=== PATIENT | female | born 1960 | race African-American/Black ===

== ENCOUNTER 2017-03-06 17:50 | Emergency (ER) | payer OTHER ==
[2017-03-06 18:05] VITALS: BP 156/91
--- NOTE | 2017-03-06 19:10 | RAD ---
Indication: Left elbow injury. 4 views of left elbow demonstrates no fracture. No joint effusion is noted. IMPRESSION: No fracture of the elbow is noted.
--- NOTE | 2017-03-17 07:24 | UC ---
Padmini Sheth Alok, scribed for Dayron Iqbal MD on 03/06/17 at 1815 . Upper Extremity HPI - HPI Summary HPI Summary: 56F presents to [facility] with left elbow swelling and pain. Pt states that this morning she banged her left elbow on a car door with immediate onset of pain. Throughout the day the pain has been returning a few times when bending/ straitening elbow. Pt states her pain is worse on the inside of her left arm and radiates throughout the entire arm. PMHx includes Asthma for which she takes Spiriva and Flovent as well as Depression for which she takes anti- depressants. Pt denies HTN. PSHx includes a caesarean section 16 years ago. Pt drinks ETOH occasionally. - History of Current Complaint Chief Complaint: UCUpperExtremity Stated Complaint: ELBOW INJURY Time Seen by Provider: 03/06/17 18:06 Hx Obtained From: Patient Onset/Duration: Lasting Hours, Still Present Severity Initially: Moderate Severity Currently: Moderate Pain Intensity: 10 Pain Scale Used: 0-10 Numeric Location Of Pain: Is Discrete @ - left elbow, Radiates To - left arm Character: Sharp Aggravating Factor(s): Flexion Associated Signs And Symptoms: Positive: Swelling - Allergies/Home Medications Allergies/Adverse Reactions: Allergies Allergy/AdvReac Type Severity Reaction Status Date / Time bee stings Allergy Severe Swelling Uncoded 05/19/13 12:23 Home Medications: Home Medications Fluticasone HFA 44 mcg(NF) [Flovent Hfa 44 mcg(NF)] 1 puff INH BID 03/06/17 [ History Confirmed 03/06/17] PMH/Surg Hx/FS Hx/Imm Hx Respiratory History Of: Reports: Asthma Psychological History Of: Reports: Depression Cancer History Of: Denies: Breast Cancer - Surgical History Surgical History: Yes Surgery Procedure, Year, and Place: c section 16 yrs ago - Family History Known Family History: Positive: Other - Yes- [place] - Social History Occupation: Employed Full-time Alcohol Use: Weekly Substance Use Type: None Smoking Status (MU): Never Smoked Tobacco Review of Systems Cardiovascular: Negative Musculoskeletal: Edema - left elbow, Other: - left elbow pain All Other Systems Reviewed And Are Negative: Yes Physical Exam Triage Information Reviewed: Yes Appearance: Well-Appearing, No Pain Distress Vital Signs: Initial Vital Signs Temp 97.5 F 03/06/17 18:01 Pulse 72 03/06/17 18:01 Resp 18 03/06/17 18:01 BP 156/91 03/06/17 18:01 Pulse Ox 95 03/06/17 18:01 Vital Signs Reviewed: Yes Eyes: Positive: Conjunctiva Clear ENT: Positive: Normal ENT inspection Neck: Positive: Supple Respiratory: Positive: Chest non-tender, Lungs clear Cardiovascular: Positive: RRR, No Murmur, Pulses Normal Abdomen Description: Negative: Distended Musculoskeletal: Positive: Strength Intact, ROM Intact, No Edema, Other: - minor tenderness over the left elbow olecrenon, no STS, no obvious bruise. Neurological: Positive: Alert, Muscle Tone Normal Psychological: Positive: Normal Response To Family Skin Exam: Normal Diagnostics - Radiology Elbow XRAY Xray Interpretation: Positive (See Comments) - IMPRESSION: No fracture of the elbow is noted. Radiology Interpretation Completed By: Radiologist Upper Extremity Course/Dx - Course Course Of Treatment: 56 yr old with left elbow pain after hitting elbow. She has intact neurovasular exam left hand. She has no symptoms presently. But her symptoms of pain that radiate into the medial right hand from the elbow are likely due to contusion of the ulnar nerve. Will refer to ortho for follow up. - Differential Dx/Diagnosis Provider Diagnoses: contusion elbow Discharge - Discharge Plan Condition: Good Disposition: HOME Patient Education Materials: Contusion in Adults (ED) Referrals: Yolanda Mclain MD [Primary Care Provider] - Gwendolyn Galvez MD [Medical Doctor] - The documentation as recorded by the Padmini butler Alok accurately reflects the service I personally performed and the decisions made by , Dayron Iqbal MD.
== END 2017-03-06 19:40 | disposition home or self-care (01) ==
LOC: UCEAST 17:50
DX: S50.02XA Contusion of left elbow, initial encounter (principal); W22.8XXA Striking against or struck by other objects, initial encounter; Y93.9 Activity, unspecified; Y92.9 Unspecified place or not applicable; J45.909 Unspecified asthma, uncomplicated; F32.9 Major depressive disorder, single episode, unspecified; Z91.030 Bee allergy status
CPT/HCPCS: 99211; G0463

== ENCOUNTER 2017-04-13 06:36 | Day surgery (SDC) | payer OTHER ==
[~2017-04-13 06:36] MED LIST: Buffered Lidocaine 0.9% SYRIN* 5 ML/SYR SYRINGE INTRADERM ONE; Buffered Lidocaine 0.9% SYRIN* 5 ML/SYR SYRINGE ONE; Ibuprofen TAB* 400 MG ONE; Ibuprofen TAB* 400 MG PO ONE; Sodium Citrate/Citric Acid* 15 ML UDC ONE; Sodium Citrate/Citric Acid* 15 ML UDC PO ONE
[2017-04-13] MEDS ORDERED: ceFAZolin 2 GM PREMIX(*) 2 GM/50 ML BAG IVPB ONE (06:50)
[2017-04-13] MEDS ORDERED: Dexamethasone IV* 4 MG/ML 1 ML (4 MG) ONE (07:13)
[2017-04-13] MEDS ORDERED: Lidocaine 1% INJ* 10 MG/ML 30 ML SDV ONE (07:13)
[2017-04-13] MEDS ORDERED: Bupivacaine 0.5% SDV PF* 30 ML VIAL ONE (07:14)
[2017-04-13] MEDS ORDERED: fentaNYL* 50 MCG/ML 2 ML VIAL (100 MCG VIAL) ONE ×2 (07:45→09:03)
[2017-04-13] MEDS ORDERED: Midazolam* 1 MG/ML 5 ML VIAL (5 MG) ONE (07:48)
[2017-04-13] MEDS ORDERED: oxyCODONE/Acetamin 5/325 MG* TAB PO PRN (08:02)
[2017-04-13] MEDS ORDERED: Propofol* 10 MG/ML 20 ML BTL IV PUSH ONE ×2 (08:02→09:03)
[2017-04-13 11:16] VITALS: BP 117/60
--- NOTE | 2017-04-14 06:18 | OP ---
DATE OF OPERATION: 04/13/17 - [facility] DATE OF : 56 SURGEON: Kenny Castillo DPM BUSINESS ADVISOR: None. ANESTHESIOLOGIST: Rajesh Sparks MD ANESTHESIA: MAC with local anesthesia, converted to LMA. PRE-OP DIAGNOSES: 1. Painful bunion deformity, left foot. 2. Painful tailor's bunion deformity, left foot. 3. Painful second left hammertoe. POST-OP DIAGNOSES: 1. Painful bunion deformity, left foot. 2. Painful tailor's bunion deformity, left foot. 3. Painful second left hammertoe. OPERATIVE PROCEDURE: 1. Bunionectomy with closing base wedge first metatarsal osteotomy and angular phalangeal osteotomy in the left foot. 2. Tailor's bunionectomy with fifth metatarsal osteotomy, left foot. 3. Correction of second left hammertoe with PIPJ arthroplasty, extensor digitorum longus tendon lengthening and metatarsal phalangeal joint arthrotomy, second digit, left foot. PATHOLOGY: Degenerative bone. HEMOSTASIS: Pneumatic ankle tourniquet initially at 250 mmHg, increased to 275 mmHg. ESTIMATED BLOOD LOSS: Less than 30 cc. MATERIALS: Four of the 3.0 mm cannulated Kelly screws. INDICATIONS: The patient has had chronic left foot pain and deformity with a bunion deformity, hypertrophic bone of first metatarsal head medially, lateral deviation of great toe, contracture of the thickened left digit with dorsal and lateral contracture and enlargement of the proximal interphalangeal joint and hypertrophic bone proliferation at the lateral aspect of the fifth metatarsal head and tailor's bunion deformity. She has pain on walking and wearing shoes and opted for surgical correction at this time to attempt to decrease pain and improve function. DESCRIPTION OF PROCEDURE: The patient was brought to the operating room and placed on the operating room table in the supine position. The anesthesia department administered IV sedation and a peripheral nerve block was performed at the left foot with a 1:1 mixture of 1% lidocaine plain and 0.5% Marcaine plain. The left foot was prepped and draped in the usual fashion. Attention was directed to the dorsomedial aspect of the left great toe joint, where a curvilinear incision was made. Incision was deepened through subcutaneous tissues with care being taken to retract neurovascular structures and cauterize superficial bleeders as needed. Next, an inverted L capsular incision was made for exposure of the great toe joint. There is no hypertrophic bone medially and somewhat dorsomedially. A McGlamry elevator was needed to free plantar lateral adhesions. Next, a traditional lateral release was performed and the extensor hallucis brevis tendon was also identified and transected. This is being done to allow for relaxation of the lateral contractures. Next, the hypertrophic bone was resected from the medial eminence in a manner to preserve sagittal groove. Power elvira was used to smooth rough edges and the surgical site was flushed with copious amounts of normal sterile saline. Next, a closing base wedge osteotomy was performed from the proximal medial hinge and the more distal lateral wedge resected to allow for closure of the reduction of the osteotomy to corrected position produced in the metatarsal angle. Temporary fixation was achieved with initially bone clamp and then 2 wires from the screw set using standard technique, assessing the position with mini the C-arm. Two 3.0 mm cannulated screws were placed across the osteotomy site. There is noted to be still some lateral deviation within the great toe. Dissection was carried further dorsomedially to allow for exposure of the proximal phalanx. Next, angular phalangeal osteotomy was performed resecting where the proximal lateral hinge of bone maintained and the distal medial wedge bone resected. The osteotomy was reduced. Temporary fixation was achieved with bone clamp and the wire from the screw set, and after assessing the position with mini C-arm, a 3.0 mm cannulated screw was placed across the osteotomy site. Both osteotomy sites were inspected and found to be solid. No detectable motion or gapping. Screws were all found to be 2 fingers tight. Dissection sites were again flushed with copious amounts of normal sterile saline. A medial capsulorrhaphy was performed, resecting the redundant medial capsule and the capsule and periosteal tissues were reapproximated and secured with holding the hallux in rectus position and secured with 2-0 Polysorb. Subcutaneous tissues were reapproximated with 4-0 Polysorb and skin was reapproximated and secured with 5- 0 nylon. Attention was directed to the dorsolateral aspect of the left fifth metatarsal and a curvilinear incision was made. Incision was deepened through subcutaneous tissues with care being taken to retract the neurovascular structures and cauterize superficial bleeders as needed. Linear periosteal and capsular incision was made to allow exposure of the fifth metatarsal. There was noted to be hypertrophic bone laterally in the fifth metatarsal head. This was resected with the sagittal saw. The power elvira was used to smooth rough edges. The surgical site was flushed with copious amounts of normal sterile saline. There was noted to be some contracture medially in the fifth metatarsal phalangeal joint capsule and this was released. Next, a fifth metatarsal closing base osteotomy was performed with the proximal and lateral hinge maintained and the distal and medial wedge bone resected to allow for reduction of the fourth intermetatarsal angle. This being done, temporary fixation was achieved with the bone clamp in the way from screw set using standard technique. A 3.0 mm cannulated Kelly screw was placed across the osteotomy site. Temporary fixation was removed and the osteotomy was found to be solid with no detected motion or gapping. The screw is 2 -fingers tight. The surgical site was flushed with copious amounts of normal sterile saline. The periosteal and capsular tissues were reapproximated and secured with 4-0 Polysorb, and subcutaneous tissues were reapproximated, secured with 4-0 Polysorb and skin was closed with 5-0 nylon. Attention was directed to the second digit where a curvilinear incision was made. Incision was deepened through subcutaneous tissues and care being taken to retract neurovascular structures and cauterize superficial bleeders as needed. Next, the extensor zamudio was released and a Z extensor tendon lengthening procedure was performed and a dorsal incision was made to release the dorsal capsule. Next, a transverse tenotomy and capsulotomy was performed at the proximal phalangeal joint to allow for exposure of the proximal phalangeal head, which was resected with sagittal saw. Power elvira was used to reduce rough edges. Surgical site was flushed with copious amounts of normal sterile saline. Still some contraction level at the metatarsophalangeal joint and the McGlamry elevator was needed to gently free plantar adhesions. This being done to allow for relaxation contractures and the surgical site was again flushed with copious amounts of normal sterile saline. The capsule and the tendon was reapproximated and secured with 4-0 Polysorb. Subcutaneous tissues were reapproximated with 4-0 Polysorb and skin was closed with 5-0 nylon. 12 mg of dexamethasone phosphate were infiltrated in total to the left forefoot and the incisions were dressed with Xeroform gauze and 4x4 gauze, Fiona and light Coban wrap was used as a dressing. The pneumatic ankle tourniquet was deflated at the left ankle and a prompt hyperemic response was noted about all 5 digits of the patient's left foot. Having appeared to tolerate the procedure and anesthesia well, the patient was transported via cart from the operating room to Recovery in satisfactory condition with capillary refill less than 3 seconds to all digits of the left foot. [id number]/[facility] #: [id number] MTDOsman
--- NOTE | 2017-04-14 09:34 | RAD ---
INDICATION: Left foot surgery. COMPARISON: There are no prior studies available for comparison. TECHNIQUE: 22 seconds of intermittent fluoroscopic guidance were provided and 4 spot films of the left foot were obtained in the operating room. FINDINGS: The films demonstrate osteotomies of the first proximal phalanx, first metatarsal and fifth metatarsal transfixed with surgical screws. IMPRESSION: INTRAOPERATIVE CONTROL FILMS. CPT II Codes: [id number]
== END 2017-04-13 11:08 | disposition home or self-care (01) ==
LOC: OREAST 06:36
PROVIDERS: ATTEND Podiatrist Foot Surgery
DX: M21.612 Bunion of left foot (principal); M21.622 Bunionette of left foot; M20.42 Other hammer toe(s) (acquired), left foot; J45.909 Unspecified asthma, uncomplicated; F32.9 Major depressive disorder, single episode, unspecified; E66.9 Obesity, unspecified
CPT/HCPCS: 76000; 88304; 88311; A9270-GY; C1713; C1776; J0690; J1100; J2001; J2250; J2704; J3010